=== PATIENT | female | born 1990 | race Caucasian/White ===

== ENCOUNTER 2017-05-14 06:32 | Inpatient (IN) ==
[2017-05-14] MEDS: LACTATED RINGERS 1,000 ML IV SCH ×4 (07:27→23:32)
[2017-05-14] MEDS ORDERED: CITRIC ACID/SODIUM CITRATE 30 ML UDCUP PO ONE (07:42)
[2017-05-14] MEDS ORDERED: FAMOTIDINE 20 MG/2 ML VIAL IV ONE (07:42)
[2017-05-14] MEDS ORDERED: OXYTOCIN 10 UNIT/ML VIAL IM ONE (07:57)
[2017-05-14] MEDS ORDERED: OXYTOCIN/LR 20 UNIT/1,000 ML BAG IV ONE ×2 (07:57→14:30)
[2017-05-14 08:02] LABS: Basophils % 0.1 % (0.0-0.8); Eosinophils # 0.1 10*3/uL (0.0-0.87); Eosinophils % 0.8 % (0.00-10.9); Hematocrit 35.1 VOL% (35.7-47.0); Hemoglobin 11.8 GM/DL (12.0-16.0); Immature Granulocytes % 0.4 %; Immature Granulocytes Absolute 0.04 #; Lymphocytes # 1.8 10*3/uL (1.4-4.0); Lymphocytes % 19.8 % (21.3-54.2); Mean Corpuscular HGB Conc 33.6 GM/DL (32-36); Mean Corpuscular Hemoglobin 29 PG (27-34); Mean Corpuscular Volume 85.8 FL (87-102); Mean Platelet Volume 11.4 FL (9.6-12.0); Monocytes # 0.7 10*3/uL (0.11-0.8); Monocytes % 7.8 % (1.7-12.7); Neutrophils # 6.4 10*3/uL (1.4-7.4); Neutrophils % 71.1 % (38.7-73.9); Platelet Count 174 T/CUMM (130-400); Red Blood Count 4.09 MC/CUMM (3.8-5.5); White Blood Count 9.1 T/CUMM (4-12)
[2017-05-14 08:27] LABS: Apearance,Urine CLEAR (Clear); Bilirubin,Urine Negative (Negative); Blood, Urine Negative (Negative); Glucose,Urine (UA) Negative (Negative); Ketones,Urine Negative (Negative); Mucus,Urine Occasional /LPF (Occasional); Nitrite,Urine Negative (Negative); Protein,Urine Negative; RBC,Urine 4 /HPF (0-4); Squamous Epithelial Cell,Urine Occasional /HPF (0-10); Urine Color Yellow (Yellow); WBC,Urine 1 /HPF (0-6)
[2017-05-14 08:58] LABS: Alanine Aminotransferase 11 U/L (13-56); Albumin 2.4 G/DL (3.4-5.0); Alkaline Phosphatase 159 U/L (45-117); Aspartate Amino Transferase 9 U/L (0-37); Bilirubin,Total < 0.39 MG/DL (0.2-1.0); Blood Urea Nitrogen 5 MG/DL (7-18); Calcium 8.4 MG/DL (8.5-10.1); Glucose 80 MG/DL (74-106); Osmolality,Calculated 274.4 MOS/KG (273-304); Potassium 3.6 MMOL/L (3.5-5.1); Sodium 140 MMOL/L (136-145); Total Protein 6.3 G/DL (6.4-8.3)
[2017-05-14] MEDS ORDERED: ceFAZolin 2,000 MG in SODIUM CHLORIDE 0.9% 100 ML IV ONE (09:00)
--- NOTE | 2017-05-14 10:04 | OB/GYN History & Physical ---
History of Present Illness Chief complaint: For repeat section due to previous section. History of present illness: Ms. Mares is a 26 year old female 3 para 2 living to her COREY is 2016 for an estimated gestational age of 39 weeks. The patient presents for elective repeat section due to previous section 2. The risk and benefits have been thoroughly discussed with this patient and significant other, plan of care has been discussed with Dr. Ramirez and all parties are in agreement plan. The patient received her care through the [facility] and she received routine care, her course was uneventful. labs: She is O+, rubella is immune, RPR is nonreactive, hepatitis B negative, HIV negative, GBS culture negative. Review of systems is negative with exception of 2 previous sections. Home Medications Medication Instructions Recorded Confirmed Type Vit No.124/Iron/Folic 1 tablet PO DAILY 12/18/15 05/14/17 History [ Vitamin Tablet] Allergies Allergy/AdvReac Type Severity Reaction Status Date / Time No Known Allergies Allergy Verified 12/13/15 09:41 12 point system: reviewed and no additional remarkable complaints except as stated Medical,Surgical,& Family Hx - Medical History Medical History: noncontributory Neurology: No history of: Seizures - Surgical History Reproductive Surgeries: Surgical HX of;: Section (2007) Patient denies;: Hysterectomy, Tubal Ligation - Family History Family History: Reports;: Family Hypertension (father) - Social History Smoking Status: Current every day smoker Have you smoked in the last 12 months: Yes (Half pack per day) Frequency of Alcohol Use: None Type of Drug Use: None Marital Status: Single Lives With:: Significant Other Functional capacity: independent ambulation Exam [employer] - Constitutional Vitals: Vital Signs Temp Pulse Resp BP Pulse Ox 05/14/17 08:00 97.2 F L 97 H 18 126/79 99 General appearance: no acute distress - Antepartum / Post Antepartum Exam Cervix - Dilatation: Deferred Breast: bilateral: normal Abdomen obstetrics: Present: bowel sounds hypoactive Vagina: Present: normal moisture Uterus exam: Present: enlarged (Gravid) - Respiratory Respiratory exam: Present: clear to auscultation bilaterally - Cardiovascular Cardiovascular exam: Present: regular rate and rhythm - GI/Abdominal GI/Abdominal exam: Present: normal bowel sounds, soft - Extremities Exam Extremities exam: Present: normal inspection - Back Exam Back exam: Present: normal inspection - Neurological Exam Neurological exam: Present: alert, oriented X3 - Psychiatric Psychiatric exam: Present: normal affect, normal mood - Skin Skin exam: Present: normal color, warm Assessment and Plan (1) Previous section Status: Acute Assessment and plan: Admit IV fluids Preop and informed consent for repeat section per Dr. Ramirez Anticipate delivery of a viable Current Visit: Yes Results - Labs CBC & BMP: 05/14/17 07:57 05/14/17 07:57
[2017-05-14] MEDS ORDERED: ONDANSETRON 4 MG/2 ML VIAL ONE (10:40)
[2017-05-14] MEDS ORDERED: PROPOFOL 200 MG/20 ML VIAL IV ONE (10:40)
[2017-05-14] MEDS ORDERED: PHENYLEPHRINE 1 MG/10 ML SYRINGE IV ONE (10:40)
--- NOTE | 2017-05-14 11:41 | Operative Note ---
Date of procedure: 05/14/17 Procedure: Preoperative diagnosis: Repeat section term Postoperative diagnosis: Same Anesthesia:[] Regional anesthesia Estimated blood loss: [] 400 Surgeon: Dr. Ramirez Findings: [] Male infant born at 11:03 AM, 7 pounds, Apgars 8 at 1 minute 9 at 5 minutes, cord blood and cord gas was obtained Complications: None Procedure: Low transverse section The patient was taken to the operating suite heart tones were obtained prior to and after regional anesthesia was obtained. She was placed in supine position her abdomen was prepped and draped in usual manner for major abdominal surgery. Through an abdominal incision the skin, subcutaneous, fascial layer and peritoneal the abdomen was entered. The bladder flap was created and a low transverse incision was made.. Fluid was clear and normal amount X, Apgars, the placenta was delivered and sent to lab for further evaluation. Injected with intrauterine Pitocin. The first layer of the uterus was closed with #1 Vicryl in a continuous locking manner. Close to imbricate the first layer with #1 Vicryl. The peritoneum was approximated with #2-0 Vicryl.[] All the last sponges and instruments were accounted for -2.) #2-0 Vicryl. Fascia was approximated with #0-0 Maxon.. The skin was approximated with renato. She tolerated procedure well and was taken to recovery room in stable condition. Surgeon / Physician: Renard Ramirez Results - Labs CBC & BMP: 05/14/17 07:57 05/14/17 07:57 Discharge Plan - Discharge Medications No Action Vit No.124/Iron/Folic [ Vitamin Tablet] 1 tablet PO DAILY - Follow Up or Referral - Forms/Instructions
[2017-05-14 11:46] LABS: Cord Arterial Blood HCO3 28.2 MMOL/L
[2017-05-14 11:49] LABS: Cord Venous Blood HCO3 24.5 MMOL/L; Cord Venous Blood PCO2 41.9 MMHG; Cord Venous Blood PO2 28.9 MMHG
[2017-05-14] MEDS ORDERED: MORPHINE 10 MG/10 ML VIAL ONE (12:33)
[2017-05-14] MEDS ORDERED: MIDAZOLAM 2 MG/2 ML VIAL ONE (12:34)
[2017-05-14] MEDS ORDERED: KETAMINE 500 MG/10 ML VIAL ONE (12:35)
--- NOTE | 2017-05-14 13:50 | Anesthesia Post-Op ---
Anesthesia Post OP - Post Ansesthetic Evaluation Patient seen in post op: Yes Resp: within normal limits CV: within normal limits Mental: within normal limits Temp: within normal limits [id number]: within normal limits Nausea and Vomiting: within normal limits Pain: within normal limits
[2017-05-14] MEDS ORDERED: SIMETHICONE CHEW 80 MG TABLET PO PRN (14:30)
[2017-05-14] MEDS ORDERED: RHO(D) IMMUNE GLOBULIN 300 MCG SYRINGE IM ONE (14:30)
[2017-05-14] MEDS ORDERED: ONDANSETRON 4 MG/2 ML VIAL IV PRN (14:30)
[2017-05-14] MEDS ORDERED: ACETAMINOPHEN 325 MG TABLET PO PRN (14:30)
[2017-05-14] MEDS ORDERED: OXYTOCIN/LR 30 UNIT/1,000 ML BAG IV ONE (15:39)
[2017-05-14] MEDS: IBUPROFEN 800 MG TABLET PO PRN (16:51)
[2017-05-14 19:10] LABS: Basophils % 0.2 % (0.0-0.8); Eosinophils # 0.1 10*3/uL (0.0-0.87); Eosinophils % 0.6 % (0.00-10.9); Hematocrit 33.6 VOL% (35.7-47.0); Hemoglobin 11.3 GM/DL (12.0-16.0); Immature Granulocytes % 0.6 %; Immature Granulocytes Absolute 0.07 #; Lymphocytes % 16.4 % (21.3-54.2); Mean Corpuscular HGB Conc 33.6 GM/DL (32-36); Mean Corpuscular Hemoglobin 29 PG (27-34); Mean Corpuscular Volume 85.9 FL (87-102); Mean Platelet Volume 11.2 FL (9.6-12.0); Monocytes # 0.7 10*3/uL (0.11-0.8); Monocytes % 5.7 % (1.7-12.7); Neutrophils # 9.3 10*3/uL (1.4-7.4); Neutrophils % 76.5 % (38.7-73.9); Platelet Count 158 T/CUMM (130-400); Red Blood Count 3.91 MC/CUMM (3.8-5.5); Red Cell Distribution Width 12.9 % (9.3-17.3); White Blood Count 12.1 T/CUMM (4-12)
[2017-05-14] MEDS: DOCUSATE SODIUM 100 MG CAPSULE PO SCH (20:29)
[2017-05-15 06:49] LABS: Basophils % 0.1 % (0.0-0.8); Eosinophils # 0.1 10*3/uL (0.0-0.87); Eosinophils % 1.2 % (0.00-10.9); Hematocrit 31.2 VOL% (35.7-47.0); Hemoglobin 10.2 GM/DL (12.0-16.0); Immature Granulocytes % 0.2 %; Immature Granulocytes Absolute 0.02 #; Lymphocytes # 1.7 10*3/uL (1.4-4.0); Mean Corpuscular HGB Conc 32.7 GM/DL (32-36); Mean Corpuscular Hemoglobin 28 PG (27-34); Mean Corpuscular Volume 86.9 FL (87-102); Mean Platelet Volume 11.3 FL (9.6-12.0); Monocytes # 0.8 10*3/uL (0.11-0.8); Monocytes % 9.6 % (1.7-12.7); Neutrophils # 5.8 10*3/uL (1.4-7.4); Neutrophils % 68.9 % (38.7-73.9); Platelet Count 149 T/CUMM (130-400); Red Blood Count 3.59 MC/CUMM (3.8-5.5); White Blood Count 8.4 T/CUMM (4-12)
--- NOTE | 2017-05-15 08:43 | OB/GYN Progress Note ---
Assessment and Plan (1) Previous section Status: Acute Assessment and plan: Admit IV fluids Preop and informed consent for repeat section per Dr. Ramirez Anticipate delivery of a viable Current Visit: Yes (2) Status post repeat low transverse section Status: Acute Assessment and plan: Initiate routine postop orders. 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 Bonding well with . 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 - Constitutional Vitals: Vital Signs Temp Pulse Resp BP Pulse Ox 05/15/17 07:34 97.5 F L 71 20 106/63 97 05/15/17 03:30 96.3 F L 65 16 90/52 95 05/15/17 02:00 18 05/15/17 01:00 20 05/14/17 23:30 97.5 F L 63 16 109/53 97 05/14/17 19:10 97 F L 60 18 96/56 98 05/14/17 16:59 70 20 106/57 96 05/14/17 16:00 97.3 F L 70 20 98/54 96 05/14/17 15:00 68 20 114/62 96 05/14/17 14:30 66 20 108/65 96 05/14/17 14:00 98.1 F 62 20 100/61 96 General appearance: no acute distress - Antepartum / Post Post Exam Breast: bilateral: normal Abdomen obstetrics: Present: bowel sounds normal Vagina: Present: normal moisture, discharge (Light lochia rubra) Uterus exam: Present: enlarged (Fundus firm and midline) - Gyencological / Post Surgical Post Surgical Exam Lungs: bilateral: normal Chest: Normal S1, Normal S2 Extremities DIRECTOR OF [employer]ATION: Present: normal Abdomen obstetrics progress note: Present: normal appearance Incision OB: Present: normal, intact - Head Head exam: Present: normal inspection - Respiratory Respiratory exam: Present: clear to auscultation bilaterally - Cardiovascular Cardiovascular exam: Present: regular rate and rhythm - GI/Abdominal GI/Abdominal exam: Present: normal bowel sounds, soft - Extremities Exam Extremities exam: Present: normal inspection - Neurological Exam Neurological exam: Present: alert, oriented X3 - Psychiatric Psychiatric exam: Present: normal affect, normal mood - Skin Skin exam: Present: normal color, warm Results - Labs CBC & BMP: 05/15/17 06:29 05/14/17 07:57
[2017-05-15] MEDS: IBUPROFEN 800 MG TABLET PO PRN ×2 (09:34→17:20)
[2017-05-15] MEDS: FERROUS SULFATE 325 MG TABLET PO SCH ×2 (09:34→20:45)
[2017-05-15] MEDS: MULTIVITAMIN (PRENATAL) TABLET PO SCH (09:34)
[2017-05-15] MEDS: DOCUSATE SODIUM 100 MG CAPSULE PO SCH ×2 (09:34→20:45)
[2017-05-15 15:50] LABS: Barbiturates Screen,Urine Negative (Negative); Benzodiazepines Screen,Urine Negative (Negative); Cannabinoid Screen,Urine Negative (Negative); Opiate Screen,Urine Positive (Negative); Phencyclidine Screen,Urine Negative (Negative)
[2017-05-15] MEDS: MAGNESIUM HYDROXIDE SUSP 30 ML UDCUP PO PRN (20:45)
[2017-05-16 07:24] VITALS: BP 122/70
[2017-05-16] MEDS: MAGNESIUM HYDROXIDE SUSP 30 ML UDCUP PO PRN (07:52)
[2017-05-16] MEDS: IBUPROFEN 800 MG TABLET PO PRN (07:53)
[2017-05-16] MEDS: FERROUS SULFATE 325 MG TABLET PO SCH (07:54)
[2017-05-16] MEDS: DOCUSATE SODIUM 100 MG CAPSULE PO SCH (07:54)
[2017-05-16] MEDS: MULTIVITAMIN (PRENATAL) TABLET PO SCH (07:54)
[2017-05-16] MEDS ORDERED: BISACODYL 10 MG SUPP RECTAL PRN (07:58)
--- NOTE | 2017-05-16 10:45 | Discharge Summary ---
Hospital Course - Hospital Course Hospital Course: Ms. Mares presented to the labor department for elective repeat section due to previous section. The patient did have a C- section and delivered a viable infant with no complications. She is followed a normal postoperative course and she has done well. Her incision is well approximated without signs of infection. She does have some bruising but no active bleeding noted. She is voiding without difficulty. Her bowel sounds are present and she has had a normal bowel movement. Her vital signs and lab values are stable. She is bonding well with her . She will be discharged home prescriptions for pain and a follow-up appointment in our office. Diagnosis - Discharge Diagnosis (1) Previous section Status: Acute (2) Status post repeat low transverse section Status: Acute Specialty Discharge - Follow Up or Referrals Follow up with: Renard Ramirez MD [Physician] - 2 Weeks Discharge Plan - Discharge Data Disposition: Disch To Home/Self Care Condition at Discharge: Stable Discharge Diet: advance to your usual diet, regular diet Activity: increase activity as tolerated, no lifting, no prolonged standing Hygiene: may shower Weight Bearing at Discharge: partial weight bearing Driving: not until seen by doctor Contact your physician if you experience:: fever over 101, pain uncontrolled by pain medications - Discharge Medications New Ibuprofen Tab [Motrin Tab] 800 mg PO Q8H PRN #30 tablet PRN Reason: Pain Severe (8-10) Ferrous Sulfate Tab [Feosol Original Tab] 325 mg PO BID #60 tablet HYDROcodone/ACETAMIN 5-325 [[place] 5-325] 2 tablet PO Q6H PRN #30 tablet PRN Reason: Pain Severe (8-10) No Action Vit No.124/Iron/Folic [ Vitamin Tablet] 1 tablet PO DAILY - Follow Up or Referral - Forms/Instructions Exam - Constitutional Vitals: Period Temp Pulse Resp BP Sys/Titus Pulse Ox Last 24 Hr 96.7 F-97.6 F 64-80 18-20 114-137/57-73 97-98 General appearance: no acute distress - Respiratory Respiratory exam: Present: clear to auscultation bilaterally - Cardiovascular Cardiovascular exam: Present: regular rate and rhythm - GI/Abdominal GI/Abdominal exam: Present: normal bowel sounds, soft - Extremities Exam Extremities exam: Present: normal inspection - Neurological Exam Neurological exam: Present: alert, oriented X3 - Psychiatric Psychiatric exam: Present: normal affect, normal mood - Skin Skin exam: Present: normal color, warm Discharge Results Labs on day of discharge: Labs from last 24 hours 05/15/17 15:30 Urine Opiates Screen Positive H Ur Barbiturates Screen Negative Ur Phencyclidine Scrn Negative U Amphetamine/Methamph Negative U Benzodiazepines Scrn Negative U Cocaine Metab Screen Negative U Cannabinoids Screen Negative DS: Provider Date of admission: 05/14/17 07:42 Primary care physician: . No PCP Attending physician on admission: Renard Ramirez MD Consults: 05/14/17 07:42 Consult to Anesthesiology [CONS] Routine Consulting Provider: Reason for Anesthesiology: Pre-op Clearance 05/14/17 14:30 Consult to Aerospace Medicine Physician [CONS] Routine Consult Aerospace Medicine Physician: Breast Feeding Discharging clinician: Heidi Floyd CNM Expected date of discharge: 05/16/17
== END 2017-05-16 12:30 | disposition home or self-care (01) | DRG 540 ==
LOC: N.LDOUT 06:32 → N.LD 06:37 → N.OB 14:15
PROVIDERS: ADMIT Obstetrics & Gynecology; ATTEND Obstetrics & Gynecology
PROC: LDCSECT (ICD-10-PCS; 2017-05-14 08:00)

== ENCOUNTER 2019-06-21 06:17 | Inpatient (IN) ==
[2019-06-21] MEDS ORDERED: FAMOTIDINE 20 MG/2 ML VIAL IV ONE (07:11)
[2019-06-21] MEDS ORDERED: ceFAZolin 2,000 MG in PREMIX 1 EACH IV ONE (07:11)
[2019-06-21] MEDS ORDERED: CITRIC ACID/SODIUM CITRATE 30 ML UDCUP PO ONE (07:11)
[2019-06-21] MEDS ORDERED: LACTATED RINGERS 1,000 ML IV ONE (07:14)
[2019-06-21] MEDS ORDERED: OXYTOCIN 10 UNIT/ML VIAL IM ONE (07:14)
[2019-06-21] MEDS ORDERED: LACTATED RINGERS 1,000 ML IV SCH ×2 (07:30→10:00)
[2019-06-21 07:34] LABS: Basophils % 0.3 % (0.0-0.8); Eosinophils # 0.1 10*3/uL (0.0-0.87); Eosinophils % 1.2 % (0.00-10.9); Hematocrit 33.7 VOL% (35.7-47.0); Hemoglobin 10.4 GM/DL (12.0-16.0); Immature Granulocytes % 0.8 %; Immature Granulocytes Absolute 0.09 #; Lymphocytes # 1.8 10*3/uL (1.4-4.0); Lymphocytes % 15.6 % (21.3-54.2); Mean Corpuscular HGB Conc 30.9 GM/DL (32-36); Mean Corpuscular Volume 84.7 FL (87-102); Mean Platelet Volume 10.9 FL (9.6-12.0); Monocytes % 6.9 % (1.7-12.7); Neutrophils % 75.2 % (38.7-73.9); Platelet Count 201 T/CUMM (130-400); Red Blood Count 3.98 MC/CUMM (3.8-5.5); Red Cell Distribution Width 13.6 % (9.3-17.3); White Blood Count 11.3 T/CUMM (4-12)
[2019-06-21 07:56] LABS: Alanine Aminotransferase 11 U/L (13-56); Albumin 2.1 G/DL (3.4-5.0); Alkaline Phosphatase 177 U/L (45-117); Aspartate Amino Transferase 10 U/L (0-37); Bilirubin,Total < 0.39 MG/DL (0.2-1.0); Blood Urea Nitrogen 6 MG/DL (7-18); Calcium 8.4 MG/DL (8.5-10.1); Estimated Glom Filtration Rate 174 ML/MIN; Glucose 84 MG/DL (74-106); Osmolality,Calculated 275.4 MOS/KG (273-304); Total Protein 6.1 G/DL (6.4-8.3)
[2019-06-21] MEDS ORDERED: TRANEXAMIC ACID 1,000 MG/10 ML VIAL ONE (08:09)
[2019-06-21] MEDS ORDERED: miSOPROStoL 200 MCG TABLET ONE (08:09)
[2019-06-21] MEDS ORDERED: METHYLERGONOVINE 0.2 MG/1 ML AMP ONE (08:10)
[2019-06-21] MEDS ORDERED: OXYTOCIN/LR 20 UNIT/1,000 ML BAG IV ONE ×2 (08:10→09:50)
[2019-06-21] MEDS ORDERED: CARBOPROST TROMETHAMINE 250 MCG/ML AMP IM ONE (08:10)
[2019-06-21 09:36] LABS: Apearance,Urine CLEAR (Clear); Bilirubin,Urine Negative (Negative); Blood, Urine Negative (Negative); Glucose,Urine (UA) Negative (Negative); Ketones,Urine Negative (Negative); Mucus,Urine Occasional /LPF (Occasional); Nitrite,Urine Negative (Negative); Protein,Urine Negative; RBC,Urine 1 /HPF (0-4); Squamous Epithelial Cell,Urine Occasional /HPF (0-10); Urine Color Yellow (Yellow); Urine Specific Gravity 1.014 (1.001-1.035); Urine Urobilinogen < 2.0 EU/DL (0.2-1.0); WBC,Urine 1 /HPF (0-6)
[2019-06-21] MEDS ORDERED: MAGNESIUM HYDROXIDE SUSP 30 ML UDCUP PO PRN (09:50)
[2019-06-21] MEDS ORDERED: ACETAMINOPHEN 325 MG TABLET PO PRN (09:50)
[2019-06-21] MEDS ORDERED: ONDANSETRON 4 MG/2 ML VIAL IV PRN (09:50)
[2019-06-21] MEDS ORDERED: RHO(D) IMMUNE GLOBULIN 300 MCG SYRINGE IM ONE (10:00)
[2019-06-21] MEDS ORDERED: BUPIVACAINE SPINAL 0.75% 2 ML AMP SPINAL ONE (10:15)
[2019-06-21] MEDS ORDERED: BUPIVACAINE 0.5% 50 ML VIAL ONE (10:15)
[2019-06-21] MEDS ORDERED: MORPHINE 10 MG/10 ML VIAL ONE (10:16)
[2019-06-21] MEDS ORDERED: fentaNYL 100 MCG/2 ML VIAL ONE (10:16)
[2019-06-21] MEDS ORDERED: PHENYLEPHRINE 1 MG/10 ML SYRINGE IV ONE (10:16)
[2019-06-21] MEDS ORDERED: DEXAMETHASONE 4 MG/1 ML VIAL ONE (10:16)
[2019-06-21] MEDS ORDERED: ONDANSETRON 4 MG/2 ML VIAL ONE (10:16)
[2019-06-21] MEDS: ceFAZolin 1,000 MG in SYRINGE 1 EACH IV SCH (17:47)
[2019-06-21 19:58] LABS: Basophils # 0.1 10*3/uL (0.0-0.2); Basophils % 0.2 % (0.0-0.8); Hematocrit 33.4 VOL% (35.7-47.0); Hemoglobin 10.5 GM/DL (12.0-16.0); Immature Granulocytes % 0.9 %; Immature Granulocytes Absolute 0.18 #; Lymphocytes # 1.6 10*3/uL (1.4-4.0); Lymphocytes % 7.7 % (21.3-54.2); Mean Corpuscular HGB Conc 31.4 GM/DL (32-36); Mean Corpuscular Volume 83.5 FL (87-102); Mean Platelet Volume 11.2 FL (9.6-12.0); Monocytes % 6.7 % (1.7-12.7); Neutrophils % 84.5 % (38.7-73.9); Platelet Count 253 T/CUMM (130-400); Red Cell Distribution Width 13.6 % (9.3-17.3); White Blood Count 20.4 T/CUMM (4-12)
[2019-06-21] MEDS: DOCUSATE SODIUM 100 MG CAPSULE PO SCH (20:12)
[2019-06-21 21:28] LABS: Lymphocytes 7 % (20-55); Segmented Neutrophils 88 % (50-85); Total Cells Counted 100
[2019-06-21 21:29] LABS: Hypochromasia 1+; Microcytosis 2+; Polychromasia 1+
[2019-06-21 21:30] LABS: Platelet Estimate Normal
[2019-06-22] MEDS: ceFAZolin 1,000 MG in SYRINGE 1 EACH IV SCH (02:02)
[2019-06-22] MEDS: IBUPROFEN 800 MG TABLET PO PRN ×2 (04:17→19:14)
[2019-06-22 05:35] LABS: Basophils % 0.2 % (0.0-0.8); Eosinophils # 0.1 10*3/uL (0.0-0.87); Eosinophils % 0.4 % (0.00-10.9); Hematocrit 28.8 VOL% (35.7-47.0); Immature Granulocytes % 0.8 %; Immature Granulocytes Absolute 0.13 #; Lymphocytes # 3.1 10*3/uL (1.4-4.0); Lymphocytes % 19.6 % (21.3-54.2); Mean Corpuscular HGB Conc 31.3 GM/DL (32-36); Mean Corpuscular Volume 84.5 FL (87-102); Mean Platelet Volume 11.5 FL (9.6-12.0); Monocytes % 5.9 % (1.7-12.7); Neutrophils % 73.1 % (38.7-73.9); Platelet Count 220 T/CUMM (130-400); Red Blood Count 3.41 MC/CUMM (3.8-5.5); Red Cell Distribution Width 13.8 % (9.3-17.3); White Blood Count 15.7 T/CUMM (4-12)
[2019-06-22] MEDS ORDERED: BISACODYL 10 MG SUPP RECTAL PRN (06:35)
[2019-06-22] MEDS: MULTIVITAMIN (PRENATAL) TABLET PO SCH (09:19)
[2019-06-22] MEDS: MAGNESIUM HYDROXIDE SUSP 30 ML UDCUP PO SCH ×2 (09:19→19:16)
[2019-06-22] MEDS: METOCLOPRAMIDE 10 MG TABLET PO SCH ×3 (09:19→23:19)
[2019-06-22] MEDS: FERROUS SULFATE 325 MG TABLET PO SCH (09:19)
[2019-06-22] MEDS: SIMETHICONE CHEW 80 MG TABLET PO PRN ×2 (09:19→19:16)
[2019-06-22] MEDS: DOCUSATE SODIUM 100 MG CAPSULE PO SCH ×2 (09:19→19:16)
[2019-06-22] MEDS ORDERED: oxyCODONE/ACETAMINOPHEN 5-325 MG TABLET PO PRN (19:09)
[2019-06-22] MEDS: oxyCODONE/ACETAMINOPHEN 5-325 MG TABLET PO PRN (19:15)
[2019-06-23] MEDS: DOCUSATE SODIUM 100 MG CAPSULE PO SCH ×2 (01:35→08:34)
[2019-06-23] MEDS: MAGNESIUM HYDROXIDE SUSP 30 ML UDCUP PO SCH ×2 (01:36→08:34)
[2019-06-23] MEDS: oxyCODONE/ACETAMINOPHEN 5-325 MG TABLET PO PRN ×2 (01:53→08:35)
[2019-06-23] MEDS: SIMETHICONE CHEW 80 MG TABLET PO PRN ×2 (01:57→08:34)
[2019-06-23] MEDS: IBUPROFEN 800 MG TABLET PO PRN (06:15)
[2019-06-23] MEDS: MULTIVITAMIN (PRENATAL) TABLET PO SCH (08:34)
[2019-06-23] MEDS: FERROUS SULFATE 325 MG TABLET PO SCH (08:35)
[2019-06-23 11:26] VITALS: BP 132/66
== END 2019-06-23 13:30 | disposition home or self-care (01) | DRG 540 ==
LOC: N.LD 06:17 → N.OB 14:26
PROVIDERS: ADMIT Obstetrics & Gynecology; ATTEND Obstetrics & Gynecology
PROC: LDCSECT (ICD-10-PCS; 2019-06-21 07:45)